=== PATIENT | male | born 1955 | race Caucasian/White ===

== ENCOUNTER 2019-10-30 10:00 | Outpatient (RCR) | payer MEDICARE, OTHER, SELFPAY ==
--- NOTE | 2019-09-28 07:41 | PTOPEVAL ---
INITIAL PHYSICAL THERAPY EVALUATION and PLAN OF CARE Thank you for referring Moreno Harrington to [facility] [place]. Moreno will be seen 1x/wk x 4 wks in PT. Please review, sign, date and return this plan of care RC. I agree with and certify that the following plan of care is medically necessary. Referring Physician Date Admitting Provider: Attending Provider: Ke Ku, Referring Provider: *PT Outpatient Evaluation Start: 09/27/19 16:39 Freq: Status: Active Protocol: Document 09/27/19 13:35 [place] (Rec: 09/27/19 16:56 [place] [id number]) Therapy Assessment Status Assessment Status Assessment Status Evaluation Outpatient Past Medical History Past Medical History Source of Past Medical History Patient Neurological History Hx Neurological Disorders No Significant History Cardiovascular History Hx Hypercholesterolemia Yes Hx Hypertension Yes Respiratory History Hx Respiratory Disorders No Significant History Genitourinary History Hx Kidney Stones Yes Musculoskeletal History Hx Arthritis Yes Hx Back Pain Yes Hx Orthopedic Surgery Yes: bilat knee arthroscopy Hx Other Musculoskeletal Disorders Yes: L shoulder pain Endocrine History Hx Diabetes Yes Evaluation Information Problem Diagnosis low back pain Onset couple of months ago Subjective Information Moreno states that he was Query Text:As Reported By Patient/ 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 Didn't seek medical care at that time,but a few weeks ago worsening of symptoms occurred - came into see Dr. Ku. Received injection - since then no back pain. When he had the increase in pain - felt like a cattle prod struck him. Has had MRI in past - bulging disc. Usually has 1-2 episoded of back pain/yr. Prior Level of Function Activity Level (Last 3 Months) Occupation retired - did office work Hand Dominance Right Medications Home Meds (Include: OTC, RX, Vitamins, hyfroclozine,sortablol/HCL, Herbals, Dose, Route,and Frequency) valspartan/HCTZ, Klor con, Query Text:Home Med Entries Will No amlodipine, parastatin, Longer Recall From Past Visits. Home alloproinol, centrum silver, Meds Must Be Re-entered With Each Visit. Vitamin B12, baby aspirin Comments Additional Prior Level of Function recreation - hunting, fishing
--- NOTE | 2019-10-04 08:19 | PCPTNOTE ---
Patient called & cancelled scheduled appointment this date due to grandchildren being in town. Rescheduled for next week.
--- NOTE | 2019-10-23 10:06 | PCPTNOTE ---
Scheduling mix up - special education secretary put his appointment at 9 on schedule, but card said 10. 10 o'clock patient already at clinic. Rescheduled for next week.
--- NOTE | 2019-10-30 10:39 | PTOPEVAL ---
PHYSICAL THERAP DISCHARGE SUMMARY Thank you for referring Moreno Harrington to [facility].? Moreno was seen x 3 visits. His pelvis/sacrum/SIJ is now symmetrical with alignment and mobility. No pain is present with his back, just stiffness. He is independent with his HEP. He is being discharged from PT to his HEP. I agree with Moreno's discharge from PT. Referring Physician Date Admitting Provider: Attending Provider: Ke Ku, Referring Provider: *PT Outpatient Evaluation Start: 09/27/19 16:39 Freq: Status: Active Protocol: Document 10/30/19 10:00 [place] (Rec: 10/30/19 10:39 [place] [id number]) Therapy Assessment Status Assessment Status Assessment Status Discharge Evaluation Information Problem Subjective Information Moreno reports no sharp back Query Text:As Reported By Patient/ pain just stiffness from Family arthritis. Back to performing usual activities. Doing okay with exercises. Pain Assessment Timing of Pain Assessment Timing of Pain Assessment Assessment Pain Scale Pain Scale Used Numeric (1 - 10) Self Report Pain Assessment Lower Back Reported Pain Level 0 Other Pain Description stiffness Lowest Pain Intensity 0 Greatest Pain Intensity 5 Pain Score Pain Score 0: Self Report Cervical and Lumbar ROM Lumbar ROM Lumbar ROM 50% of Normal Lumbar Comments symmetrical SIJ alignment and mobility Muscle Length Testing Muscle Length Testing Left Hamstring Length -44 Query Text:(90 - 90 Position) Right Hamstring Length -40 Query Text:(90 - 90 Position) General Exercise General Exercises Exercise Location core Exercise Description P bars - verball reviewed Query Text:Record Sets, Reps, - hip abd, flex, extension - Resistance, and Position green theraband 15 reps lateral walking with green theraband - 8 ft x 2 Supine - bent knee fall outs - 20 reps - marching - 20 reps - bridging - 20 reps - leg extension - 15 reps - prone leg lifts - over pillow - 15 reps Exercise Comments encouraged to continue with HEP Rehab Teaching Rehab Teaching Teaching Topic Rehab Teaching Topic Components Body Mechanics,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
== END 2019-11-09 09:06 | disposition home or self-care (01) ==
LOC: ANHHIPT 10:00
PROVIDERS: PCP Internal Medicine; Visit Provider Internal Medicine
DX: M54.5 Low back pain (principal)
CPT/HCPCS: 97110; 97161

== ENCOUNTER 2020-10-23 10:46 | Outpatient (RCR) | payer MEDICARE, SELFPAY ==
--- NOTE | 2020-10-23 12:10 | PTOPEVAL ---
PHYSICAL THERAPY EVALUATION Thank you for referring Moreno Harrington to [facility] [place] [facility].? Moreno was negative for vestibular testing with exception of + L horizontal canal BPPV testing. Corrective maneuver was done in clinic and given to him for self corrective technique at home. I will follow up with him next week via phone. No further follow up is planned at this time. I agree with the above. Referring Physician Date Admitting Provider: Attending Provider: Ke Ku, Referring Provider: *DAVID Outpatient Evaluation Start: 10/23/20 11:10 Freq: Status: Active Protocol: Document 10/23/20 11:10 [place] (Rec: 10/23/20 12:09 [place] [id number]) Therapy Assessment Status Assessment Status Assessment Status Evaluation Outpatient Past Medical History Past Medical History Source of Past Medical History Recalled from Previous Visit, Confirmed with Patient/Family Neurological History Hx Neurological Disorders No Significant History Cardiovascular History Hx Hypercholesterolemia Yes Hx Hypertension Yes Respiratory History Hx Respiratory Disorders No Significant History Genitourinary History Hx Kidney Stones Yes Hx Other Genitourinary Disorders Yes: kidney stents placement and removal Musculoskeletal History Hx Arthritis Yes Hx Back Pain Yes Hx Orthopedic Surgery Yes: bilat knee arthroscopy Hx Other Musculoskeletal Disorders Yes: L shoulder pain Endocrine History Hx Diabetes Yes: type 2 Evaluation Information Problem Diagnosis dizziness Onset ~ 3 months ago Subjective Information Onset of severe dizziness - Query Text:As Reported By Patient/ didn't last that long - but Family now has it off and on - usually when bending over - dizziness occurs when he straigthens up. Sleeps on side - when repositions will have some dizziness. Also will have some dizziness with sitting at edge of bed - goes away quickly. Prior Level of Function Activity Level (Last 3 Months) Occupation retired Hand Dominance Right Medications Home Meds (Include: OTC, RX, Vitamins, amlodipine, lisinopril, Herbals, Dose, Route,and Frequency) pravastatin, protasitrate, Query Text:Home Med Entries Will No Metformin, centrum, asprin 81 Longer Recall From Past Visits. Home mg, allopurinol Meds Must Be Re-entered With Each Visit. 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
--- NOTE | 2020-10-30 15:47 | PCPTNOTE ---
Follow up phone call made to Moreno. Occasional dizziness still present - but knows what to do for it. No further follow up needed. He is to call if questions/concerns arise.
== END 2020-11-26 09:20 | disposition home or self-care (01) ==
LOC: ANHHIPT 10:46
PROVIDERS: PCP Internal Medicine; Visit Provider Internal Medicine
DX: R55 Syncope and collapse (principal)
CPT/HCPCS: 97162

== ENCOUNTER 2023-05-07 06:33 | Outpatient (CLI) | payer MEDICARE, SELFPAY ==
--- NOTE | ~2023-05-07 | CT_ITS ---
CT of the Abdomen and Pelvis: Indication: Abdominal pain Technique: 2.5 mm axial scans were obtained through the abdomen and pelvis following intravenous adm inistration of 100 cc of Omnipaque 350. Dose reduction technique was used on this scan by utilizing a utomated exposure control and iterative reconstruction technique. The dose-length product (DLP) was 1 456.93 mGy-cm. Findings: Scans through the lung bases are unremarkable. The liver, spleen, pancreas, gallbladder, adrenals and kidneys are within normal limits. There are at herosclerotic calcifications of the aorta. No lymphadenopathy. No bowel obstruction or bowel wall thickening. There is no evidence to suggest acute appendicitis. Images through the pelvis were performed. Urinary bladder unremarkable. No pelvic mass seen. No ascit es. Impression: No significant abnormalities seen. Reviewed, dictated and finalized at [facility]. CARRIER Impression: No significant abnormalities seen.
[2023-05-07 07:04] LABS: Estimated Glomerular Filt Rate 55
== END 2023-05-07 06:34 | disposition home or self-care (01) ==
PROVIDERS: PCP Family Medicine; Visit Provider Family Medicine
DX: K46.9 Unspecified abdominal hernia without obstruction or gangrene (principal); R10.9 Unspecified abdominal pain
CPT/HCPCS: 74177; Q9967

== ENCOUNTER 2023-11-02 01:55 | Day surgery (SDC) | payer MEDICARE, SELFPAY ==
[2023-08-31 13:28] VITALS: BMI 38.0
[2023-10-18 09:13] VITALS: BMI 35.9
[2023-11-02 12:15] VITALS: BP 153/93; PULSE 81; RESP 18; TEMP 36.3; O2SAT 97
[2023-11-02 12:24] LABS: Glucose Point of Care 146 mg/dl (65-105)
[2023-11-02] MEDS: LACTATED RINGERS 1,000 ML 150 ML IV CONT (12:27)
--- NOTE | 2023-11-02 12:53 | WPDANESEPPF ---
Anes - Initial Pre Proc Eval Procedure: Operation Date: 11/02/23 13:30 Proposed Procedures p Colonoscopy - Mehran Canada MD Date/Time: 11/02/23 12:53 Surgeon: Mehran Canada MD Pre Op Diagnosis: Unspecified abdominal pain Patient Data Age: 68 Gender: M Height: 1.78 m Weight: 123.1 kg Last Vital Signs Temp 97.3 F L 11/02/23 12:15 Pulse 81 11/02/23 12:15 Resp 18 11/02/23 12:15 BP 153/93 H 11/02/23 12:15 Pulse Ox 97 11/02/23 12:15 O2 Del Method Room Air 11/02/23 12:15 Allergies Allergy/AdvReac Type Severity Reaction Status Date / Time No Known Allergies Allergy Verified 10/18/23 09:12 Home Medications Medication Instructions Recorded Confirmed Type sotalol 80 mg tablet 80 mg PO BID 10/15/21 11/02/23 History amlodipine 10 mg tablet 10 mg PO DAILY 01/14/23 11/02/23 History hydralazine 100 mg tablet 100 mg PO TID #270 tabs 03/23/23 11/02/23 Rx [id number] 300 mcg-K 60 1 tablet PO DAILY 08/31/23 11/02/23 History mcg-lycop 600 mcg-lutein 300 mcg tablet (Centrum Silver Men) spironolactone 25 mg tablet 25 mg PO DAILY 08/31/23 11/02/23 History sildenafil 100 mg tablet 100 mg PO DAILY PRN sexual 09/28/23 11/02/23 Rx activity #14 tabs allopurinol 300 mg tablet 300 mg PO DAILY #90 tabs 09/29/23 11/02/23 Rx dulaglutide 1.5 mg/0.5 mL 1.5 mg (0.5 mL) subcut WEEKLY #12 09/29/23 11/02/23 Rx subcutaneous pen injector mL (Trulicity) irbesartan 300 mg tablet 300 mg PO DAILY #90 tabs 09/29/23 11/02/23 Rx pravastatin 40 mg tablet 40 mg PO QHS #90 tabs 09/29/23 11/02/23 Rx potassium citrate 15 mEq (1,620 15 meq PO QID #360 tabs 10/04/23 11/02/23 Rx mg) tablet,extended release metformin 500 mg tablet,extended 1,000 mg PO BID #240 tabs 10/14/23 11/02/23 Rx release 24 hr Laboratory Tests 11/02/23 12:22 POC Capillary Glucose 146 H mg/dl (65-105) Patient hx anesthesia problems: none Family hx anesthesia problems: none Results Review: All pre-operative results and documents have been reviewed as part of the pre-operative evaluation. [facility] Past Medical History Medical History (Updated 09/13/23 @ 15:19 by Lucho Dumont MD) Abdominal pain Annual physical exam COVID-19 Diabetes Hernia Hyperlipidemia Hypertension Screening for colon cancer Surgical History Surgical History H/O knee surgery Family History Family History Father Diabetes mellitus Hypertension Mother Cancer Diabetes mellitus Hypertension Social History Social History Smoking packs per day: 1 Smoking cigarettes per day: 20.0 Years smoked: 30 Smoking pack-years: 30.00 Smoking status: Former smoker Tobacco type: cigarettes Second hand tobacco smoke exposure: No Smoking end date: 03/08/99 Alcohol intake: current Substance use: never Substance use type: does not use Lack of Transportation: No Lack of Food: Never True Current Housing: I Have Housing Concerned About Future Housing: No Difficulty Paying Gas/Electric Bills: No Difficulty Paying for Meds: No Currently Unemployed: No Difficulty w/ Childcare or Family Care: No Living arrangements: with family Occupation/Education: retired Gender identity (if verbalized by the patient): Male Sexual Orientation (if Verbalized by the Patient): Straight or Heterosexual Spiritual care concerns: No Agree to blood products: Yes Anes - Eval Final PreProcedure Day of Procedure 11/02/23 12:53 Patient weight: obese Heart: regular rate and rhythm Lungs: clear to auscultation Airway: Mallampati scale class III Neurological: alert and oriented Last oral intake: >/= 8 hours ASA classification: III Emergent: no Anesthetic plan: proceed Anesthesia type and monitoring: general GIVS and s
--- NOTE | 2023-11-02 12:57 | PM.HPGS ---
History of Present Illness History of Present Illness Consent: Risks, benefits, and alternatives have been discussed and questions answered. Patient agrees to proceed with procedure. Chief complaint: screening colonoscopy Narrative: Moreno Harrington is a 68 year old male here for first screening colonoscoyp Review of Systems Review of Systems: All systems reviewed & are unremarkable except as noted in HPI and below PMFSH Past Medical History Medical History (Updated 09/13/23 @ 15:19 by Lucho Dumont MD) Abdominal pain Annual physical exam COVID-19 Diabetes Hernia Hyperlipidemia Hypertension Screening for colon cancer Surgical History Surgical History H/O knee surgery Family History Family History Father Diabetes mellitus Hypertension Mother Cancer Diabetes mellitus Hypertension Social History Social History Smoking packs per day: 1 Smoking cigarettes per day: 20.0 Years smoked: 30 Smoking pack-years: 30.00 Smoking status: Former smoker Tobacco type: cigarettes Second hand tobacco smoke exposure: No Smoking end date: 03/08/99 Alcohol intake: current Substance use: never Substance use type: does not use Lack of Transportation: No Lack of Food: Never True Current Housing: I Have Housing Concerned About Future Housing: No Difficulty Paying Gas/Electric Bills: No Difficulty Paying for Meds: No Currently Unemployed: No Difficulty w/ Childcare or Family Care: No Living arrangements: with family Occupation/Education: retired Gender identity (if verbalized by the patient): Male Sexual Orientation (if Verbalized by the Patient): Straight or Heterosexual Spiritual care concerns: No Agree to blood products: Yes Meds Home Medications and Allergies Home Medications Medication Instructions Recorded Confirmed Type sotalol 80 mg tablet 80 mg PO BID 10/15/21 11/02/23 History amlodipine 10 mg tablet 10 mg PO DAILY 01/14/23 11/02/23 History hydralazine 100 mg tablet 100 mg PO TID #270 tabs 03/23/23 11/02/23 Rx [id number] 300 mcg-K 60 1 tablet PO DAILY 08/31/23 11/02/23 History mcg-lycop 600 mcg-lutein 300 mcg tablet (Centrum Silver Men) spironolactone 25 mg tablet 25 mg PO DAILY 08/31/23 11/02/23 History sildenafil 100 mg tablet 100 mg PO DAILY PRN sexual 09/28/23 11/02/23 Rx activity #14 tabs allopurinol 300 mg tablet 300 mg PO DAILY #90 tabs 09/29/23 11/02/23 Rx dulaglutide 1.5 mg/0.5 mL 1.5 mg (0.5 mL) subcut WEEKLY #12 09/29/23 11/02/23 Rx subcutaneous pen injector mL (Trulicity) irbesartan 300 mg tablet 300 mg PO DAILY #90 tabs 09/29/23 11/02/23 Rx pravastatin 40 mg tablet 40 mg PO QHS #90 tabs 09/29/23 11/02/23 Rx potassium citrate 15 mEq (1,620 15 meq PO QID #360 tabs 10/04/23 11/02/23 Rx mg) tablet,extended release metformin 500 mg tablet,extended 1,000 mg PO BID #240 tabs 10/14/23 11/02/23 Rx release 24 hr Allergies Allergy/AdvReac Type Severity Reaction Status Date / Time No Known Allergies Allergy Verified 10/18/23 09:12 Vital Signs Vital Signs - 24 hr 11/02/23 12:15 Temperature 97.3 F L Pulse Rate 81 Respiratory Rate 18 Blood Pressure 153/93 H Pulse Oximetry 97 Oxygen Delivery Room Air Exam Const: General: comfortable and no acute distress HENMT: Face/Nose/Sinus: Normal nares present Eyes: General: appearance normal, both eyes and all related structures Neck: Neck: no JVD Resp: Auscultation: clear to auscultation bilaterally Cardio: Rate: regular rate Rhythm: regular rhythm GI: Inspection: non-distended GI Palp: Yes Soft to palpation Skin: General skin exam: normal color Neuro: General: gait normal Speech: normal speech Extrem: General: normal to inspection Psych: Mental Status: mental status
[2023-11-02 13:29] VITALS: BP 153/86; PULSE 81; RESP 18; O2SAT 96
[2023-11-02 13:39] VITALS: BP 155/92; PULSE 77; RESP 18; O2SAT 96
[2023-11-02 13:49] VITALS: BP 156/88; PULSE 76; RESP 20; O2SAT 97
== END 2023-11-02 13:53 | disposition home or self-care (01) ==
PROVIDERS: PCP Physician Assistant Medical; Referring Provider Family Medicine; Visit Provider Internal Medicine Gastroenterology
PROC: 0DJD8ZZ Inspection of Lower Intestinal Tract, Via Natural or Artificial Opening Endoscopic (ICD-10-PCS; CPT 45378; principal; 2023-11-02 13:30)
DX: Z12.11 Encounter for screening for malignant neoplasm of colon (principal); C18.6 Malignant neoplasm of descending colon; D12.0 Benign neoplasm of cecum; D12.5 Benign neoplasm of sigmoid colon; K64.8 Other hemorrhoids; E11.9 Type 2 diabetes mellitus without complications; E78.5 Hyperlipidemia, unspecified; I10 Essential (primary) hypertension; Z87.891 Personal history of nicotine dependence
CPT/HCPCS: 45385; 82948; 88305; 88342; J2001; J2704; J7120

== ENCOUNTER 2024-01-04 12:38 | Outpatient (CLI) | payer MEDICARE, SELFPAY ==
--- NOTE | ~2024-01-04 | MR_ITS ---
MRI of the left knee Clinical history: Pain Technique: Coronal proton density and proton density-weighted images, sagittal proton-density and T2 fat-sat images, and axial proton-density fat-saturated images were acquired. Findings: Anterior and posterior cruciate ligaments are intact. Medial collateral ligament and the la teral collateral ligament complex are intact. Popliteus tendon is intact. There is complex tearing of the posterior horn and body medial meniscus, which are diminutive, versus possibly prior partial meniscectomy. There is similar diminutive appearance of the body segment of t he lateral meniscus, which could reflect tearing versus prior partial meniscectomy. 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 There is extensive moderate to high-grade chondromalacia the central aspect of the femoral trochlea. There is patchy mod erate chondromalacia of the medial femoral condyle. Small tricompartmental osteophytes are present. Extensor mechanism is intact. Minimal joint effusion and minimal Altamirano's cyst are present. Impression: Diminutive body and posterior horn medial meniscus could reflect postmeniscectomy change versus compl ex tearing. Diminutive appearance of the body segment of the lateral meniscus could also reflect tearing versus p artial meniscectomy change. Correlate with surgical history. Tricompartment degenerative change, as above. Reviewed, dictated and finalized at location . Impression: Diminutive body and posterior horn medial meniscus could reflect postmeniscecto my change versus complex tearing. Diminutive appearance of the body segment of the lateral meniscus could also re flect tearing versus partial meniscectomy change. Correlate with surgical histo ry. Tricompartment degenerative change, as above.
== END 2024-01-04 12:39 | disposition home or self-care (01) ==
LOC: GOSHIMG 12:39
PROVIDERS: PCP Physician Assistant Medical; Visit Provider Orthopaedic Surgery
DX: S83.242A Other tear of medial meniscus, current injury, left knee, initial encounter (principal); X58.XXXA Exposure to other specified factors, initial encounter; M17.12 Unilateral primary osteoarthritis, left knee
CPT/HCPCS: 73721